=== PATIENT | female | born 1955 | race Caucasian/White ===

== ENCOUNTER 2016-08-14 09:54 | Outpatient (CLI) | payer OTHER ==
--- NOTE | 2016-08-14 11:21 | DIAGNOSTIC IMAGING REPORT ---
PROCEDURE: US VENOUS - RIGHT EXT INDICATION: SWELLING RT LEG TECHNIQUE: Duplex sonography of the deep venous system in the right lower extremity was performed. Compression and augmentation techniques were used. COMPARISON: None. FINDINGS: Each interrogated segment of deep vein from the common femoral vein into the calf veins demonstrates normal compressibility, augmentation and/or color Doppler flow without filling defect. No evidence of significant soft-tissue edema, soft-tissue mass or cyst. The proximal aspect of the right greater saphenous vein is patent for approximately 8 to 10 cm in length. Greater saphenous vein is dilated measuring 8.8 mm in diameter. Proximal segment demonstrates2.2 seconds. The mid and distal portions of the greater saphenous vein in the thigh and below the knee demonstrate no detectable flow and are incompressible. IMPRESSION: 1. No deep venous thrombosis in the right lower extremity. 2. Iatrogenic thrombosis/ablation of the mid to distal greater saphenous vein. 3. The proximal portion the greater saphenous vein is patent, demonstrating insufficiency.
== END 2016-08-14 23:00 | disposition home or self-care (01) ==
LOC: US SRH 09:54
DX: I82.811 Embolism and thrombosis of superficial veins of right lower extremity (principal)